=== PATIENT | male | born 1995 | race Two or more races ===

== ENCOUNTER 2018-06-13 13:28 | Emergency (ER) | payer MEDICAID ==
[~2018-06-13] VITALS: Ht 172.7 cm; Wt 65.8 kg
[2018-06-13 16:07] VITALS: BP 109/73
[2018-06-13] MEDS ORDERED: HYDROcodone-ACET 5/325MG TAB PO ONE (16:15)
[2018-06-13] MEDS ORDERED: cefTRIAXone SOD 1,000 MG VL IM ONE (16:15)
== END 2018-06-13 16:38 | disposition home or self-care (01) ==
LOC: ER 13:31
DX: S61.411A Laceration without foreign body of right hand, initial encounter (principal); W23.0XXA Caught, crushed, jammed, or pinched between moving objects, initial encounter; Y93.89 Activity, other specified; Y99.8 Other external cause status; Y92.89 Other specified places as the place of occurrence of the external cause
CPT/HCPCS: 12002; 73130; 96372; 99283; J0696